=== PATIENT | male | born 1985 | race Caucasian/White ===

== ENCOUNTER 2016-10-31 10:12 | Emergency (ER) | payer MEDICAID ==
[~2016-10-31] VITALS: Ht 160 cm; Wt 62.1 kg
[2016-10-31 10:16] VITALS: BP 154/94
== END 2016-10-31 11:05 | disposition home or self-care (01) ==
LOC: ED 10:12
DX: B34.9 Viral infection, unspecified (principal); R03.0 Elevated blood-pressure reading, without diagnosis of hypertension

== ENCOUNTER 2017-02-20 10:48 | Emergency (ER) | payer SELFPAY ==
[~2017-02-20] VITALS: Ht 165.1 cm; Wt 63.5 kg
[2017-02-20 13:58] VITALS: BP 125/60
== END 2017-02-20 13:58 | disposition home or self-care (01) ==
LOC: ED 10:48
DX: T15.01XA Foreign body in cornea, right eye, initial encounter (principal); R42 Dizziness and giddiness; W45.8XXA Other foreign body or object entering through skin, initial encounter; Y93.89 Activity, other specified; Y92.89 Other specified places as the place of occurrence of the external cause; Y99.8 Other external cause status

== ENCOUNTER 2018-10-06 16:55 | Emergency (ER) | payer MEDICAID ==
[~2018-10-06] VITALS: Ht 160 cm; Wt 68.0 kg
[2018-10-06 16:57] VITALS: Ht 160 cm; Wt 68.0 kg
[2018-10-06 21:06] LABS: BASOPHIL % 0.1 % (0-2); PLATELET COUNT 248 x10^3mcL (130-400); RED CELL DISTRIBUTION WIDTH 14.1 % (11.5-14.5)
[2018-10-06 21:23] LABS: CALCIUM 9.6 mg/dL (8.5-10.1); CARBON DIOXIDE 26.8 mmol/L (21-32); CHLORIDE SERUM 101 mmol/L (98-107); CREATININE SERUM 0.9 mg/dL (0.7-1.3); GFR1 > 60 mL/min; GLUCOSE SERUM 129 mg/dL (74-106); POTASSIUM SERUM 4.1 mmol/L (3.5-5.1); SODIUM SERUM 139 mmol/L (136-145)
[2018-10-06 21:28] LABS: ALBUMIN 4.2 g/dL (3.4-5.0); ALKALINE PHOSPHATASE 92 U/L (46-116); ALT/SGPT 32 U/L (16-63); AST/SGOT 10 U/L (15-37); BILIRUBIN TOTAL 1.9 mg/dL (0.20-1.00)
[2018-10-06 22:51] VITALS: BP 134/84
== END 2018-10-06 22:51 | disposition home or self-care (01) ==
LOC: ED 16:55
PROVIDERS: Emergency Medicine
DX: M54.5 Low back pain (principal); R11.2 Nausea with vomiting, unspecified; R42 Dizziness and giddiness
CPT/HCPCS: J1885; J2270; J2405; Q9967